=== PATIENT | female | born 1985 | race African-American/Black ===

== ENCOUNTER 2018-05-02 08:32 | Outpatient (CLI) | payer MEDICAID | END 2018-05-02 08:33 | disposition home or self-care (01) | LOC: BICULT 08:32 | PROVIDERS: ATTEND Nurse Practitioner Women's Health | DX: R10.2 Pelvic and perineal pain (principal) | CPT/HCPCS: 76856; 93976 ==

== ENCOUNTER 2020-07-23 10:13 | Outpatient (CLI) | payer OTHER ==
--- NOTE | 2020-07-23 10:45 | RAD ---
EXAM: XR Knee Lt 2 View PROVIDED CLINICAL HISTORY: Pain FINDINGS: There is no evidence for fracture or other acute osseous abnormality. Alignment appears anatomic. Annalise nt spaces appear preserved. IMPRESSION: No evidence for an acute osseous abnormality or significant arthropathy.
== END 2020-07-23 10:14 | disposition home or self-care (01) ==
LOC: BICRAD 10:13
PROVIDERS: ATTEND Nurse Practitioner Family
DX: M25.562 Pain in left knee (principal)

== ENCOUNTER 2023-04-21 14:05 | Outpatient (CLI) | payer MEDICAID | END 2023-04-21 14:06 | disposition home or self-care (01) | LOC: BICULT 14:05 | PROVIDERS: ATTEND Nurse Practitioner Women's Health | DX: N92.1 Excessive and frequent menstruation with irregular cycle (principal) | CPT/HCPCS: 76856; 93976 ==

== ENCOUNTER 2023-05-15 14:08 | Outpatient (CLI) | payer MEDICAID | END 2023-05-15 14:09 | disposition home or self-care (01) | LOC: BICMAMMO 14:08 | PROVIDERS: ATTEND Nurse Practitioner Women's Health | DX: Z12.31 Encounter for screening mammogram for malignant neoplasm of breast (principal) | CPT/HCPCS: 77067 ==